=== PATIENT | female | born 2000 | race Hispanic/Latino ===

== ENCOUNTER 2022-10-30 00:50 | Day surgery (SDC) | payer OTHER ==
[2022-10-30 01:23] VITALS: BMI 30.5
[2022-10-30] MEDS ORDERED: hydrALAZINE 20 MG/ML VIAL SLOW IVP PRN (02:27)
== END 2022-10-30 02:39 | disposition home or self-care (01) ==
LOC: CSHLD/OP 00:50
PROVIDERS: ATTEND Obstetrics & Gynecology
DX: O47.1 False labor at or after 37 completed weeks of gestation (principal); Z3A.40 40 weeks gestation of pregnancy
CPT/HCPCS: 99283

== ENCOUNTER 2022-10-30 07:40 | Inpatient (IN) | payer OTHER ==
[2022-10-30] MEDS ORDERED: Promethazine HCl 25 MG/ML VIAL IM PRN ×2 (07:59→10:18)
[2022-10-30] MEDS ORDERED: Ibuprofen 800 MG TAB PO PRN (07:59)
[2022-10-30] MEDS ORDERED: Ondansetron PF 4 MG/2 ML Vial IVP PRN ×3 (07:59→18:45)
[2022-10-30] MEDS ORDERED: HYDROcodone/Acetaminophen 5/325 mg Tablet PO PRN ×4 (07:59→18:45)
[2022-10-30] MEDS ORDERED: Lidocaine 1% (PF) 30 ML VIAL SC PRN (07:59)
[2022-10-30] MEDS ORDERED: hydrALAZINE 20 MG/ML VIAL SLOW IVP PRN ×2 (07:59→18:45)
[2022-10-30] MEDS ORDERED: Butorphanol Tartrate 1 MG/ML VIAL SLOW IVP PRN (07:59)
[2022-10-30] MEDS ORDERED: NS w/ Oxytocin 30 units 500 ML IV SCH ×2 (08:00)
[2022-10-30 08:18] VITALS: BMI 30.5
[2022-10-30 08:39] LABS: Hemoglobin 10.3 g/dL (12.0-15.5); Mean Corpuscular HGB CONC 32.7 g/dL (32.0-36.0); Mean Corpuscular Hemoglobin 26.3 pg (27.0-33.0); Mean Corpuscular Volume 80.4 fl (81.6-98.3); Platelet Count 226 10x3/uL (150-450); RBC Distribution Width 12.8 % (11.5-14.5); Red Blood Cell (RBC) Count 3.92 10x6/uL (3.90-5.03); White Blood Cell (WBC) Count 10.1 10x3/uL (3.5-10.5)
[2022-10-30] MEDS ORDERED: Fentanyl 2 mcg/Bup 0.1% Cadd 100 ML ONE (09:12)
[2022-10-30 09:21] LABS: Syphilis Antibody Nonreactive (Nonreactive); Syphilis Antibody Index 0.06 S/CO (<1.00 Non-Reactive)
[2022-10-30 09:23] LABS: HBSAg Index 0.16 S/CO (0-0.99); Hep B Surf Ag Non-Reactive S/CO (NonReactive)
[2022-10-30 09:58] LABS: SARS-CoV-2 NAA Rapid Test Not Detected (NotDetected)
[2022-10-30] MEDS ORDERED: ePHEDrine Sulfate 50 MG/10 ML VIAL SLOW IVP PRN (10:18)
[2022-10-30] MEDS ORDERED: Moisturizing Cream (Eucerin) 113 GM JAR TOP PRN (10:18)
[2022-10-30] MEDS ORDERED: Lactated Ringer's 500 ML IV PRN (10:18)
[2022-10-30] MEDS ORDERED: diphenhydrAMINE 50 MG/ML VIAL IVP PRN (10:18)
[2022-10-30] MEDS ORDERED: Naloxone HCl 0.4 mg/ml Vial IVP PRN ×2 (10:18)
[2022-10-30] MEDS ORDERED: Acetaminophen 325 MG TAB PO PRN (10:18)
[2022-10-30] MEDS ORDERED: Communication Order-Pharmacy FS SCH (10:30)
[2022-10-30] MEDS ORDERED: Fentanyl 2 mcg/Bupivacaine 0.1% Cassette 100 ML EPIDURAL SCH (10:30)
[2022-10-30] MEDS: Lactated Ringer's 1,000 ML IV SCH (10:53)
[2022-10-30] MEDS ORDERED: Fentanyl 100 MCG/2 ML VIAL ONE (12:41)
[2022-10-30] MEDS ORDERED: ePHEDrine Sulfate 50 MG/10 ML VIAL ONE (14:00)
[2022-10-30] MEDS ORDERED: Bupivacaine 0.25% HCL 30 ML VIAL ONE (14:00)
[2022-10-30] MEDS ORDERED: Milk Of Magnesia 30 ML UDCUP PO PRN (18:45)
[2022-10-30] MEDS ORDERED: Benzocaine-Menthol 82.5 ML CAN TOP PRN (18:45)
[2022-10-30] MEDS ORDERED: diphenhydrAMINE 25 MG CAP PO PRN (18:45)
[2022-10-30] MEDS ORDERED: Bisacodyl 10 MG SUPP PR PRN (18:45)
[2022-10-30] MEDS ORDERED: Boostrix 0.5 ML (Tdap) VIAL (>/=7 yrs of age) IM ONE (18:45)
[2022-10-30] MEDS ORDERED: Lanolin Ointment 7 GM TUBE TOP PRN (18:45)
[2022-10-30] MEDS: Ibuprofen 800 MG TAB PO SCH (22:13)
[2022-10-30] MEDS: Docusate 100 MG CAP PO SCH (22:13)
[2022-10-31 04:27] LABS: Hemoglobin 7.8 g/dL (12.0-15.5)
[2022-10-31] MEDS: Lactated Ringer's 1,000 ML IV SCH (04:30)
[2022-10-31] MEDS: Ibuprofen 800 MG TAB PO SCH ×3 (05:36→21:42)
[2022-10-31] MEDS: Docusate 100 MG CAP PO SCH ×2 (08:31→21:42)
[2022-10-31] MEDS: Prenatal Vitamin 1 TAB PO SCH (08:31)
[2022-10-31] MEDS: Ferrous Sulfate 325 MG TAB PO SCH ×2 (08:31→18:03)
[2022-10-31] MEDS ORDERED: Iron, Sodium Ferric Gluconate 125 MG in Sodium Chloride 0.9% 100 ML IVPB SCH (11:00)
[2022-11-01] MEDS: Ibuprofen 800 MG TAB PO SCH (05:47)
[2022-11-01 08:00] VITALS: BP 109/56; TEMP 98.2
[2022-11-01] MEDS: Prenatal Vitamin 1 TAB PO SCH (09:33)
[2022-11-01] MEDS: Ferrous Sulfate 325 MG TAB PO SCH (09:33)
[2022-11-01] MEDS: Docusate 100 MG CAP PO SCH (09:33)
== END 2022-11-01 11:41 | disposition home or self-care (01) | DRG 807 ==
LOC: CSHLD/OP 07:40 → CSHLD 08:53 → CSHPED 17:40
PROVIDERS: ADMIT Obstetrics & Gynecology; ATTEND Obstetrics & Gynecology
PROC: 10E0XZZ Delivery of Products of Conception, External Approach (ICD-10-PCS; principal; 2022-10-30)
PROC: 0HQ9XZZ Repair Perineum Skin, External Approach (ICD-10-PCS; 2022-10-30)
PROC: 0UQMXZZ Repair Vulva, External Approach (ICD-10-PCS; 2022-10-30)
DX: O70.0 First degree perineal laceration during delivery (principal); Z37.0 Single live birth; Z3A.40 40 weeks gestation of pregnancy; Z20.822 Contact with and (suspected) exposure to COVID-19; D64.9 Anemia, unspecified; O90.81 Anemia of the puerperium
CPT/HCPCS: 36415; 51702; 85014; 85018; 85027; 86780; 86850; 86900; 86901; 87340; 99285; J2916; J3490; J7120; S0020; U0002